=== PATIENT | female | born 1995 | race Caucasian/White ===

== ENCOUNTER 2017-12-18 11:29 | Outpatient (CLI) | payer BC, MEDICAID | END 2017-12-18 13:13 | disposition home or self-care (01) | LOC: OBT 11:29 → L-D 11:29 → OBT 13:13 | DX: O36.8130 Decreased fetal movements, third trimester, not applicable or unspecified (principal); Z3A.39 39 weeks gestation of pregnancy | CPT/HCPCS: 76818 ==

== ENCOUNTER 2017-12-21 09:15 | Outpatient (CLI) | payer BC, MEDICAID | END 2017-12-21 12:30 | disposition home or self-care (01) | LOC: OBT 09:15 → L-D 09:16 → OBT 12:30 | DX: O36.8130 Decreased fetal movements, third trimester, not applicable or unspecified (principal); Z3A.39 39 weeks gestation of pregnancy | CPT/HCPCS: 76818 ==

== ENCOUNTER 2017-12-25 15:36 | Inpatient (IN) | payer BC, MEDICAID ==
[2017-12-25] MEDS ORDERED: BUTORPHANOL 2 MG INJ IV (20:30)
[2017-12-25] MEDS ORDERED: OXYTOCIN 30 UNITS/LR 500 ML IV ×3 (20:30→22:00)
[2017-12-25] MEDS ORDERED: CARBOPROST 250 MCG INJ IM (20:30)
[2017-12-25] MEDS ORDERED: MISOPROSTOL 200 MCG TAB PR (20:30)
[2017-12-25] MEDS ORDERED: LIDOCAINE 1% (MPF) 30 ML INJ INJ (20:30)
[2017-12-25 20:32] LABS: ADD MAN DIFF? NO
[2017-12-25 20:34] LABS: BASOPHILS % 0.2 % (0.0-2.0); EOSINOPHILS # 0.1 10^3/ul (0.0-0.5); EOSINOPHILS % 0.4 % (0.0-7.0); HEMATOCRIT 37.4 % (37.0-47.0); HEMOGLOBIN 12.6 g/dl (12.0-16.0); LYMPHOCYTES # 2.3 10^3/ul (0.8-2.9); LYMPHOCYTES % 18.8 % (15.0-51.0); MEAN CORPUSCULAR HEMOGLOBIN 31.8 pg (29.0-33.0); MEAN CORPUSCULAR HGB CONC 33.7 g/dl (32.0-37.0); MEAN CORPUSCULAR VOLUME 94.4 fl (82.0-101.0); MEAN PLATELET VOLUME 11.1 fl (7.4-10.4); MONOCYTE # 0.5 10^3/ul (0.3-0.9); MONOCYTES % 4.3 % (0.0-11.0); NEUTROPHIL # 9.5 10^3/ul (1.6-7.5); NEUTROPHILS % 75.8 % (39.0-77.0); PLATELET COUNT 196 10^3/UL (140-415); RED BLOOD COUNT 3.96 10^6/ul (4.20-5.40); RED CELL DISTRIBUTION WIDTH 12.2 % (11.5-14.5)
[2017-12-25 20:34] LABS: WHITE BLOOD COUNT 12.5 10^3/ul (4.8-10.8)
[2017-12-25 20:58] LABS: INR 0.83; PROTIME 11.5 Sec (11.9-14.9); PT RATIO 0.9
[2017-12-25 21:08] LABS: PARTIAL THROMBOPLASTIN TIME 25.3 Sec (25.0-35.0)
[2017-12-25] MEDS: LACTATED RINGER'S 1,000 ML IV* (21:34)
[2017-12-25] MEDS: OXYTOCIN 30 UNITS/LR 500 ML IV (21:48)
[2017-12-25] MEDS ORDERED: IBUPROFEN 600 MG TAB PO (22:00)
[2017-12-26] MEDS: LACTATED RINGER'S 1,000 ML IV* ×3 (01:05→10:49)
[2017-12-26] MEDS ORDERED: ZOLPIDEM 5 MG TAB PO (03:00)
[2017-12-26] MEDS ORDERED: KETOROLAC 30 MG INJ IV (03:00)
[2017-12-26] MEDS ORDERED: DIPHENHYDRAMINE 50 MG INJ IV (03:00)
[2017-12-26] MEDS ORDERED: ONDANSETRON 4 MG INJ IV ×2 (03:00→18:30)
[2017-12-26] MEDS ORDERED: HYDROmorphONE 0.5 MG/0.5 ML SYG IV ×2 (03:00)
[2017-12-26] MEDS ORDERED: NALOXONE (0.4 MG/ML) INJ IV (03:00)
[2017-12-26] MEDS: FENTAnyl 2MCG/ML-ROPIV 0.2% 100 ML BAG EPI ×2 (03:15→12:43)
[2017-12-26 04:22] LABS: HEPATITIS B SURFACE ANTIGEN NEGATIVE (NEGATIVE)
[2017-12-26] MEDS ORDERED: AMPICILLIN 2 GM/NS (PMX) 100 ML (13:35)
[2017-12-26] MEDS: AMPICILLIN 2 GM/NS (PMX) 100 ML IV (13:42)
[2017-12-26] MEDS: METHYLERGONOVINE 0.2 MG INJ IM (15:59)
[2017-12-26] MEDS: OXYTOCIN 30 UNITS/LR 500 ML IV ×2 (16:00→18:58)
[2017-12-26] MEDS ORDERED: AMPICILLIN 1 GM/NS (PMX) 50 ML IV (17:30)
[2017-12-26] MEDS ORDERED: MISOPROSTOL 200 MCG TAB PR (18:30)
[2017-12-26] MEDS ORDERED: ACETAMINOPHEN 325 MG TAB PO ×2 (18:30)
[2017-12-26] MEDS ORDERED: DIPHENHYDRAMINE 25 MG CAP PO (18:30)
[2017-12-26] MEDS ORDERED: HYDROCODONE/APAP (5/325) TAB PO ×2 (18:30)
[2017-12-26] MEDS ORDERED: CARBOPROST 250 MCG INJ IM (18:30)
[2017-12-26] MEDS ORDERED: OXYTOCIN 30 UNITS/LR 500 ML IV (18:30)
[2017-12-26] MEDS ORDERED: METHYLERGONOVINE 0.2 MG INJ IM (18:30)
[2017-12-26] MEDS: LANOLIN 7 GM TUBE TOP (18:54)
[2017-12-26] MEDS: DIBUCAINE 1% 30 GM OINT PR (18:54)
[2017-12-26] MEDS: BENZOCAINE 20% 56 ML SPRAY TOP (18:55)
[2017-12-26 22:17] LABS: RAPID PLASMA REAGIN NONREACTIVE (NR)
[2017-12-26] MEDS: SENNA/DOCUSATE NA (8.6MG/50MG) TAB PO (22:27)
[2017-12-26] MEDS: IBUPROFEN 800 MG TAB PO (23:50)
[2017-12-27] MEDS: IBUPROFEN 800 MG TAB PO ×3 (05:42→18:25)
[2017-12-27 06:56] LABS: ADD MAN DIFF? NO
[2017-12-27 07:06] LABS: BASOPHILS % 0.2 % (0.0-2.0); EOSINOPHILS # 0.1 10^3/ul (0.0-0.5); EOSINOPHILS % 0.7 % (0.0-7.0); HEMOGLOBIN 10.7 g/dl (12.0-16.0); LYMPHOCYTES # 2.3 10^3/ul (0.8-2.9); LYMPHOCYTES % 13.6 % (15.0-51.0); MEAN CORPUSCULAR HEMOGLOBIN 32.2 pg (29.0-33.0); MEAN CORPUSCULAR HGB CONC 33.4 g/dl (32.0-37.0); MEAN CORPUSCULAR VOLUME 96.4 fl (82.0-101.0); MEAN PLATELET VOLUME 11.2 fl (7.4-10.4); MONOCYTE # 1.1 10^3/ul (0.3-0.9); MONOCYTES % 6.4 % (0.0-11.0); NEUTROPHIL # 13.1 10^3/ul (1.6-7.5); NEUTROPHILS % 78.7 % (39.0-77.0); PLATELET COUNT 137 10^3/UL (140-415); RED BLOOD COUNT 3.32 10^6/ul (4.20-5.40); RED CELL DISTRIBUTION WIDTH 12.7 % (11.5-14.5)
[2017-12-27 07:06] LABS: WHITE BLOOD COUNT 16.7 10^3/ul (4.8-10.8)
[2017-12-27] MEDS: SENNA/DOCUSATE NA (8.6MG/50MG) TAB PO ×2 (09:36→21:43)
[2017-12-27] MEDS: CEPHALEXIN 500 MG CAP PO ×2 (12:44→18:26)
[2017-12-28] MEDS: IBUPROFEN 800 MG TAB PO ×3 (00:26→12:41)
[2017-12-28] MEDS: CEPHALEXIN 500 MG CAP PO ×3 (00:26→12:41)
[2017-12-28] MEDS ORDERED: VARICELLA VACCINE LIVE/PF 1,350 UNIT/0.5 ML ML SC* (09:00)
[2017-12-28] MEDS ORDERED: MEASLES,MUMPS,RUBELLA VACCINE INJ SC* (09:00)
[2017-12-28] MEDS: SENNA/DOCUSATE NA (8.6MG/50MG) TAB PO (09:37)
[2017-12-28 09:42] LABS: ADD MAN DIFF? NO
[2017-12-28 09:49] LABS: WHITE BLOOD COUNT 10.7 10^3/ul (4.8-10.8)
[2017-12-28 09:49] LABS: BASOPHILS % 0.3 % (0.0-2.0); EOSINOPHILS # 0.1 10^3/ul (0.0-0.5); EOSINOPHILS % 1.3 % (0.0-7.0); HEMATOCRIT 30.7 % (37.0-47.0); HEMOGLOBIN 10.1 g/dl (12.0-16.0); LYMPHOCYTES # 1.8 10^3/ul (0.8-2.9); LYMPHOCYTES % 16.7 % (15.0-51.0); MEAN CORPUSCULAR HEMOGLOBIN 32.3 pg (29.0-33.0); MEAN CORPUSCULAR HGB CONC 32.9 g/dl (32.0-37.0); MEAN CORPUSCULAR VOLUME 98.1 fl (82.0-101.0); MONOCYTE # 0.5 10^3/ul (0.3-0.9); MONOCYTES % 4.7 % (0.0-11.0); NEUTROPHIL # 8.2 10^3/ul (1.6-7.5); NEUTROPHILS % 76.5 % (39.0-77.0); PLATELET COUNT 140 10^3/UL (140-415); RED BLOOD COUNT 3.13 10^6/ul (4.20-5.40); RED CELL DISTRIBUTION WIDTH 12.8 % (11.5-14.5)
[2017-12-28] MEDS: DIPHTH/TET/ACEL PERTUSS (ADULT) 0.5 ML VIAL IM* (15:58)
== END 2017-12-28 17:30 | disposition home or self-care (01) | DRG 775 ==
LOC: OBT 15:36 → L-D 15:37 → PP1 12-26 18:07 → OBT 18:08 → L-D 18:08
PROVIDERS: Obstetrics & Gynecology
PROC: 10E0XZZ Delivery of Products of Conception, External Approach (ICD-10-PCS; principal; 2017-12-26)
PROC: 0UQGXZZ Repair Vagina, External Approach (ICD-10-PCS; 2017-12-26)
PROC: 0UQMXZZ Repair Vulva, External Approach (ICD-10-PCS; 2017-12-26)
DX: O71.4 Obstetric high vaginal laceration alone (principal); O71.82 Other specified trauma to perineum and vulva; Z3A.39 39 weeks gestation of pregnancy; Z37.0 Single live birth; Z23 Encounter for immunization
CPT/HCPCS: 62319; 76818; 85025; 85610; 85730; 86592; 86850; 86900; 86901; 87340; 90715